=== PATIENT | male | born 2000 | race Caucasian/White ===

== ENCOUNTER 2023-12-18 04:09 | Emergency (ER) | payer BC, SELFPAY ==
[2023-12-18 04:11] VITALS: BP 168/113; PULSE 115; RESP 18; TEMP 36.8; O2SAT 98; BMI 35.6
--- NOTE | 2023-12-18 04:31 | ED_ITS ---
Discharge Plan Disposition Patient Disposition: Home, Self-Care Referrals Follow up/Referrals: Provider,Kishore, [Primary Care Provider] - See instructions Activity Restrictions/Add. Instructions Additional Instructions/Restrictions: Recommend following up with a dentist. Continue to monitor for changes. Clinical Impressions Clinical Impression: Lesion of mouth Discharge ED Provider: Benito Gorman General Adult HPI General Chief complaint: Dental/Oral Stated complaint: spot on gum Time Seen by Provider: 12/18/23 04:23 Mode of Arrival: Ambulatory Source of Information: Patient Limitations: No Limitations Description of Symptoms (Recalled from ER Triage Doc. by RN): Patient reports that he has a lump between his lip and teeth around his gums. Patient reports this lump has been there for several months . Denies any changes to the lump, no pain, patient just states that his anxiety made him come tonight. States that he has severe anxiety and became concerned that it was cancer and wanted to have it checked. History of Present Illness HPI narrative: 23-year-old male with reported history of anxiety presents for evaluation of his mouth. He reports that he has felt a lump on his right lower jaw for the last several months. It is soft, nontender, it has not changed in size. He denies any history of oral or smoking tobacco use. He reports that it is not significantly different than normal, but his anxiety made him come in. He is concerned he could have cancer. Related Data Allergies Allergy/AdvReac Type Severity Reaction Status Date / Time promethazine [From Phenergan] AdvReac Unknown Nausea Verified 12/18/23 04:28 [facility] Disclaimer: The information contained in this section may have been updated after the patient was seen, as this information can be updated by other users. Medical History (Updated 12/18/23 @ 04:31 by Benito Gorman MD) Anxiety Surgical History (Updated 12/18/23 @ 04:29 by Jennie Colon RN) History of tonsillectomy Social History Smoking Status: Never smoker alcohol intake: never current occupational status: employed Travel in the last 8 weeks: None ROS Obtained: Yes All systems reviewed & no additional complaints except as documented Physical Exam General General appearance: alert and in no apparent distress Head Head exam: atraumatic and normocephalic Eye Eye exam: Present normal appearance, PERRL and EOMI ENT ENT exam: Present normal external ear exam and other (Normal oral mucous membranes. There is a small, nontender, rounded, soft, mobile density beneath the gumline of the right mandibular incisors.) Neck Neck exam: Present normal inspection and full ROM Chest Chest inspection: Present normal inspection and symmetric chest wall rise; Absent tenderness Respiratory Respiratory exam: Present normal lung sounds bilaterally; Absent respiratory distress Cardiovascular Cardiovascular exam: Present regular rate and normal rhythm Abdominal Exam Abdominal exam: Present soft; Absent distention, tenderness or guarding Extremities Exam Extremities exam: Present normal inspection; Absent edema or joint swelling Back Exam Back exam: Present normal inspection; Absent tenderness Neurological Exam Neurological exam: Present alert and oriented X3; Absent motor sensory deficit Psychiatric Psychiatric exam: Present normal affect and normal mood Skin Skin exam: Present warm, dry and normal color Lymphatic Lymphatic Findings: no adenopathy Medical Decision Making Medical Records Medical records reviewed: Yes I reviewed the patient's medical records. Jayant Inquiry Pt receiving controlled substance: No Jayant was queried for this patient: No Vital Signs: 12/18/23 04:11 12/18/23 04:33 Temperature 98.2 F 98.2 F Temperature Source Oral Oral Pulse Rate 115 H Pulse Rate [Left Radial] 115 H Respiratory Rate 18 16 Blood Pressure 168/113 H Blood Pressure [Right Arm] 168/113 H Blood Pressure Mean [Right Arm] 131 Blood Pressure Source Automatic Cuff Blood Pressure Source [Right Arm] Automatic Cuff Blood Pressure Position Sitting Blood Pressure Position [Right Arm] Sitting 02 Sat by Pulse Oximetry 98 Oxygen Delivery Method Room Air Room Air Lab Data Lab results reviewed: Yes I reviewed the patient's lab results. Medical Decision Narrative: 23-year-old male with history of severe anxiety presents for evaluation of chronic oral lesion.. History was obtained interactive discussion with patient, family. On arrival, patient is [afebrile, hemodynamically stable, satting appropriately, alert, oriented x4, GCS 15], moving all extremities spontaneously. Full physical exam performed and significant for a small, nontender, rounded, soft, mobile density beneath the gumline of the right mandibular incisors. Normal oral mucosa. Differential includes but is not limited to cyst, lymph node, abscess, malignancy. Given patient history, exam and workup, patient's presentation most likely represents a cyst of some kind. No significant concern for malignancy at this time given patient has no risk factors, no mucous membrane changes, the lesion is soft, rounded, stable in size etc. etc. I recommended patient follow-up with his dentist for further assessment. Patient was discharged in stable condition with return precautions.. Procedures Risk/Benefits of Procedure(s) Were Explained: Yes Critical Care Critical Care Time Critical Care Time: No
[2023-12-18 04:33] VITALS: BP 168/113; PULSE 115; RESP 16; TEMP 36.8; O2SAT 98
== END 2023-12-18 04:35 | disposition home or self-care (01) ==
PROVIDERS: Emergency Provider Emergency Medicine
DX: K13.70 Unspecified lesions of oral mucosa (principal); F41.1 Generalized anxiety disorder
CPT/HCPCS: 99282

== ENCOUNTER 2025-03-11 21:44 | Emergency (ER) | payer BC, SELFPAY ==
--- OUTSIDE RECORDS SUMMARY | 2025-03-05 14:00 | XMS_ITS | Encounter Summary ---
Author Organization Healthcare Address [facility] [place] [address] Care Team Providers Care Signals Intelligence Analyst Name Role Phone Julita Shah QUILL CLEANING MACHINE OPERATOR Primary Care Provider [phone] Reason for Visit * Reason Comments Establish Care Anxiety Encounter Details Date Type Department Care Team (Late st Contact Info) Description 03/05/2025 2:00 PM EDT Office Visit [facility] [address] [place] [address] Julita Shah, QUILL CLEANING MACHINE OPERATOR [address] [place] [address] Encounter to establish care (Primary Dx); Routine general medical examination at a health care facility; BMI 40.0-44.9, adult (CMS/HCC); Anxiety; Obsessive-compulsive disorder, unspecified type Social History Tobacco Use Types Packs/Day Years Used Date Smoking Tobacco: Never Passive Smoke Exposure: Past Smokeless Tobacco: Never Tobacco Cessation:Counseling Given: Not Answered PHQ-2 Answer Date Recorded Patient Health Questionnaire-2 Score 0 03/05/2025 PHQ-9 Answer Date Recorded Patient Health Questionnaire-9 Score 4 03/05/2025 Humiliation, Afraid, Rape, and Kick questionnair e Answer Date Recorded Within the last year, have y ou been afraid of your partner or ex-partner? No 03/05/2025 Within the last year, have y ou been humiliated or emotionally abused in other ways by your partner or ex-partner? No Within the last year, have y ou been kicked, hit, slapped, or otherwise physically hurt by your partner or ex-partner? No 03/05/2025 Within the last year, have y ou been raped or forced to have any kind of sexual activity by your partner or ex-partner? No 03/05/2025 Hunger Vital Sign Answer Date Recorded Within the past 12 months, y ou worried that your food would run out before you got the money to buy more. Never true 03/05/20 25 Within the past 12 months, t he food you bought just didn't last and you didn't have money to get more. Never true 03/05/2025 PRAPARE - Transportation Answer Date Re corded In the past 12 months, has l ack of transportation kept you from medical appointments or from getting medications? No 02/13 In the past 12 months, has l ack of transportation kept you from meetings, work, or from getting things needed for daily living? No 03/05/2025 Housing Stability Vital Sign Answer Marco A e Recorded In the last 12 months, was t here a time when you were not able to pay the mortgage or rent on time? No 03/05/2025 In the past 12 months, how m any times have you moved where you were living? 0 03/05/2025 At any time in the past 12 m [facility], were you homeless or living in a detention (including now)? No 03/05/2025 Utilities Answer Date Recorded In the past 12 months has th e electric, gas, oil, or water company threatened to shut off services in your home? No 03/05/2025 Sex and Gender Information Value Date Recorded Sex Assigned at Not on file Legal Sex Male 7:05 PM EDT Gender Identity Not on file Sexual Orientation Not on file documented as of this encounter Last Filed Vital Signs Vital Sign Reading Time Taken Comments Blood Pressure 136/88 03/05/2025 1:58 PM EDT Pulse 98 03/05/2025 1:58 PM EDT Temperature - - Respiratory Rate 18 03/05/2025 1:58 PM EDT Oxygen Saturation 98% 03/05/2025 1:58 PM EDT Inhaled Oxygen Concentration - - Weight 139 kg (306 lb 7 oz) 03/05/2025 1:58 PM E DT Height 180.3 cm (5' 11 ) 03/05/2025 1:58 PM EDT Body Mass Index 42.74 03/05/2025 1:58 PM EDT documented in this encounter Functional Status * Over the past 2 weeks, how often have you been bothered by any of the following problems? Question Answer Date of Assessment Author Little interest or pleasure in doing things Not at all 03/05/2025 2:03 PM Analilia Lozano Feeling down, depressed, or hopeless Not at all 03/05/2025 2:03 PM Analilia Lozano Patient Health Questionnaire -2 Score 0 03/05/2025 2:03 PM Analilia Lozano * Question Answer Date of Assessment Author Trouble falling or staying asleep, or sleeping too much Not at all 03/05/2025 2:03 PM Analilia Lozano Feeling tired or having little energy Not at all 03/05/2025 2:03 PM Analilia Lozano Poor appetite or overeating More than half the days 03/05/2025 2:03 PM Analilia Lozano Feeling bad about yourself - or that you are a failure or have let yourself or your family down Several days 03/05/2025 2:03 PM Analilia Lozano Trouble concentrating on things, such as reading the newspaper or watching television Several days 03/05/2025 2:03 PM Analilia Lozano Moving or speaking so slowly that other people could have noticed? Or the opposite - being so fidgety or restless that you have been moving around a lot more than usual. Not at all 03/05/2025 2:03 PM Analilia Lozano Thoughts that you would be better off or hurting yourself in some way Not at all 03/05/2025 2:03 PM Analilia Lozano Patient Health Questionnaire-9 Score 4 03/05/2025 2:03 PM Analilia Lozano * Calculated C-SSRS Risk Score (Lifetime/Recent) Answer Date of Assessment Author No Risk Indicated 03/05/2025 2:00 PM Analilia Lozano * If you checked off any problems on this questionnaire so far, Question Answer Date of Assessment Author How difficult have these problems made it for you to do your work, take care of things at home, or get along with other people? Somewhat difficult 03/05/2025 2:03 PM EDT Analilia Lugo * How difficult have these problems made it for you to do your work, take care of things at home, or get along with other people? Answer Date of Assessment Author Somewhat difficult 03/05/2025 2:03 PM EDT Analilia Jon * Question Answer Date of Assessment Author 1. Wish to be (Past 1 Month) No 025 2:00 PM EDT Analilia Lugo 2. Non-Specific Active Suici benson Thoughts (Past 1 Month) No 03/05/2025 2:00 PM EDT Des Lugo 6. Suicidal Behavior (Lifetime) No 2:00 PM EDT Analilia Lugo documented as of this encounter Miscellaneous Notes * Progress Notes - Julita Shah, NINO - 03/05/2025 2:00 PM EDT Arik Thompson Chief Complaint Patient presents with [facility] Care Anxiety 24 yo CM presents today to establish care. Previously followed with a provider at [facility], but hasn't been seen there in over 1 year. 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 He also c/o anxiety. Says he feels like he constantly worries about things. Will read anabaptist documents to help reassure him, but worry comes right back. Feels easily overwhelmed. He saw a counselor in the past, mentioned OCD. Patient says he will have to press a light switch 7 times when turningit off. Also feels like he angers easily. Denies any SI/HI. ACTIVE ISSUES: Patient Active Problem List Diagnosis Date Noted Obsessive-compulsive disorder, unspecified 03/06/2024 Past Medical History[1] Surgical History[2] Family History[3] Social History Socioeconomic History Marital status: Spouse name: Not on file Number of children: Not on file Years of education: Not on file Highest education level: Not on file Occupational History Not on file Tobacco Use Smoking status: Never Passive exposure: Past Smokeless tobacco: Never Vaping Use Vaping status: Never Used Substance and Sexual Activity Alcohol use: Not on file Drug use: Not on file Sexual activity: Not on file Other Topics Concern Not on file Social History Narrative Not on file Social Drivers of Health Financial Resource Strain: Not on file Food Insecurity: No Food Insecurity (03/05/2025) Hunger Vital Sign Worried About Running Out of Food in the Last Year: Never true Ran Out of Food in the Last Year: Never true Transportation Needs: No Transportation Needs (03/05/2025) PRAPARE - Transportation Lack of Transportation (Medical): No Lack of Transportation (Non-Medical): No Physical Activity: Not on file Stress: Not on file (05/17/2024) Social Connections: Unknown (04/26/2023) Received from [facility] Family and Community Support Help with Day-to-Day Activities: Not on file Lonely or Isolated: Not on file Intimate Partner Violence: Not At Risk (03/05/2025) Humiliation, Afraid, Rape, and Kick questionnaire Fear of Current or Ex-Partner: No Emotionally Abused: No Physically Abused: No Sexually Abused: No Housing Stability: Low Risk (03/05/2025) Housing Stability Vital Sign Unable to Pay for Housing in the Last Year: No Number of Times Moved in the Last Year: 0 Homeless in the Last Year: No Medications Ordered Prior to Encounter[4] Allergies[5] Pap smear: N/A Mammogram: N/A Colonoscopy: N/A, due at age 47 Health Maintenance Due Topic Date Due [facility]-HIV Screening Never done [facility]-Depression Screening Never done [facility]-Varicella Vaccines (2 of 2 - 2-dose childhood series) 08/03/2013 [facility]- SDOH Screenings Never done [facility]-DTaP,Tdap,and Td Vaccines (7 - Td or Tdap) 05/11/2023 [facility]-IFBVC-44 Vaccine (3 - season) 2024 [facility]-Influenza Vaccine (1) 03/15/2025 All medications have been reviewed today. The following portions of the patient's chart were reviewed in this encounter and updated as appropriate: Past medical history, Surgical history, Family history, Social history, and Allergies. Over the last 2 weeks, how often have you been bothered by any of the following problems? Little interest or pleasure in doing things: Not at all Feeling down, depressed, or hopeless: Not at all Trouble falling or staying asleep, or sleeping too much: Not at all Feeling tired or having little energy: Not at all Poor appetite or overeating: More than half the days Feeling bad about yourself - or that you are a failure or have let yourself or your family down: Several days Trouble concentrating on things, such as reading the newspaper or watching television: Several days Moving or speaking so slowly that other people could have noticed? Or the opposite - being so fidgety or restless that you have been moving around a lot more than usual.: Not at all Thoughts that you would be better off or hurting yourself in some way: Not at all Patient Health Questionnaire-9 Score: 4 Review of Systems A 14 point ROS reviewed and is otherwise negative except as per HPI. Objective Vitals: 03/05/25 1358 BP: 136/88 Pulse: 98 Resp: 18 SpO2: 98% Physical Exam Vitals and nursing note reviewed. Constitutional: General: He is not in acute distress. Appearance: He is obese. HENT: Head: Normocephalic. Right Ear: Tympanic membrane, ear canal and external ear normal. Left Ear: Tympanic membrane, ear canal and external ear normal. Nose: Nose normal. Mouth/Throat: Mouth: Mucous membranes are moist. Pharynx: Oropharynx is clear. Eyes: Conjunctiva/sclera: Conjunctivae normal. Pupils: Pupils are equal, round, and reactive to light. Cardiovascular: Rate and Rhythm: Normal rate and regular rhythm. Heart sounds: Normal heart sounds. Pulmonary: Effort: Pulmonary effort is normal. Breath sounds: Normal breath sounds. Abdominal: Palpations: Abdomen is soft. There is no mass. Tenderness: There is no abdominal tenderness. Musculoskeletal: Cervical back: Neck supple. No tenderness. Right lower leg: No edema. Left lower leg: No edema. Lymphadenopathy: Cervical: No cervical adenopathy. Skin: General: Skin is warm and dry. Neurological: Mental Status: He is alert and oriented to person, place, and time. Psychiatric: Mood and Affect: Mood normal. Behavior: Behavior normal. Assessment/Plan 1. Encounter to establish care (Primary) New patient/screening labs ordered. - CBC W/O Differential - Hemoglobin A1c - Comprehensive Metabolic Panel, Plasma - Lipid Profile, Plasma - Thyroid Stimulating Hormone, Plasma 2. Routine general medical examination at a health care facility Routine health maintenance discussed. Screening labs ordered. Patient declined Tdap today. Lifestyle Counseling: Healthy diet limiting red meat and processed foods, Visit dentist 2 or more times per year, Visit optometry or ophthalmology according to age/conditions, If you drink alcohol, use in moderation. Less than 7 drinks per week for women, less than 14 drinks per week for men. , Weight loss advised, options discussed, caloric needs and healthy food choices, Intermittent fasting, Vaccine counseling for age, Age appropriate screenings, Mental health, stress management, Age appropriate safety counseling, Sexual health and safety, Sleep hygiene discussed, and Sunscreen use/monitor for paulino ing skin lesions. - CBC W/O Differential - Hemoglobin A1c - Comprehensive Metabolic Panel, Plasma - Lipid Profile, Plasma - Thyroid Stimulating Hormone, Plasma 3. BMI 40.0-44.9, adult ([facility]) Screening labs ordered. The patient received dietary education because they have an above normal BMI. and The patient received exercise education because they have an above normal BMI. - CBC W/O Differential - Hemoglobin A1c - Comprehensive Metabolic Panel, Plasma - Lipid Profile, Plasma - Thyroid Stimulating Hormone, Plasma - Vitamin D 25 Hydroxy 4. Anxiety 5. Obsessive-compulsive disorder, unspecified type Chronic, not currently well-controlled. Start Lexapro as directed. Risks vs benefits and potential adverse effects of the medication discussed. Healthy coping mechanisms advised. Follow-up in 4-6 weeks if not improving, sooner if any issues. - escitalopram (Lexapro) 10 MG tablet; Take 1 tablet by mouth daily. Dispense: 30 tablet; Refill: 11 Julita Shah APRN [1] No past medical history on file. [2] No past surgical history on file. [3] No family history on file. [4] No current outpatient medications on file prior to visit. No current facility-administered medications on file prior to visit. [5] Allergies Allergen Reactions Promethazine Nausea And Vomiting documented in this encounter Plan of Treatment Not on file documented as of this encounter Procedures Procedure Name Priority Date/Time Associated Diagnosis Comments VITAMIN D 25 HYDROXY Routine 03/05/2025 2:34 PM EDT BMI 40.0-44.9, adult (CMS/HCC) CBC W/O DIFFERENTIAL Routine 03/05/2025 2:34 PM EDT Encounter to establish care Routine general medical examination at a health care facility BMI 40.0-44.9, adult (CMS/HCC) TSH Routine 03/05/2025 2:34 PM EDT Encounter to establish care Routine general medical examination at a health care facility BMI 40.0-44.9, adult (CMS/HCC) HEMOGLOBIN A1C Routine 03/05/2025 2:34 PM EDT Encounter to establish care Routine general medical examination at a health care facility BMI 40.0-44.9, adult (CMS/HCC) LIPID PROFILE, PLASMA Routine 03/05/2025 2:34 PM EDT Encounter to establish care Routine general medical examination at a health care facility BMI 40.0-44.9, adult (CMS/HCC) COMPREHENSIVE METABOLIC PANEL, PLASMA Routine 03/05/2025 2:34 PM EDT Encounter to establish care Routine general medical examination at a health care facility BMI 40.0-44.9, adult (CMS/HCC) documented in this encounter Results * (ABNORMAL) Vitamin D 25 Hydroxy (03/05/2025 2:34 PM EDT) [facility] Vitamin D 25 Hydroxy 13.7(L) 20.0 - 80.0 ng/mL 03/05/2025 9:10 PM EDT [facility] Blood Venous blood specimen / Unknown Venipuncture / Unknown 03/05/2025 2:34 PM EDT 03/05/2025 2:34 PM EDT Narrative [facility] - 03/05/2025 9:10 PM EDT Testing performed on [employer], standardized against NIST SRM [id number]. When testing samples from patients whose predominant form of vitamin D is vitamin D2, such as patients receiving vitamin D2 supplementation, results that are subtherapeutic should be confirmed with another method, such as LC-MS/MS, before being used for patient management. Vitamin D, 25-Hydroxy reference range, age 18 years and up: Deficiency: <12 ng/mL Insufficiency: 12 to 19 ng/mL Sufficiency: 20 to 80 ng/mL Possible toxicity: >100 ng/mL Julitahumera Shah APRN LAB BLOOD ORDERABLES Final Resu lt Performing Organization Address City/[facility]/ZIP Co de Phone Number [facility] [address] [place] [address] * Thyroid Stimulating Hormone, Plasma (03/05/2025 2:34 PM EDT) Thyroid Stimulating Hormone, Plasma 2.46 0.40 - 4.20 uIU/mL 03/05/2025 7:13 PM EDT [facility] Blood Venous blood specimen / Unknown Venipuncture / Unknown 03/05/2025 2:34 PM EDT 03/05/2025 2:34 PM EDT Julita Floreso QUILL CLEANING MACHINE OPERATOR LAB BLOOD ORDERABLES Final Resu lt Performing Organization Address [facility] Co de Phone Number [facility] [address] [place] [address] * (ABNORMAL) Lipid Profile, Plasma (03/05/2025 2:34 PM EDT) Cholesterol, Plasma 181 <200 mg/dL 03/05/2025 7:13 PM EDT [facility] Comment: Cholesterol Reference Range (age >17 years): Desirable <200 mg/dL Borderline 200 to 239 mg/dL Undesirable >239 mg/dL HDL 31(L) >=40 mg/dL 03/05/2025 7:13 PM EDT [facility] Comment: HDL Cholesterol Reference Ranges (age >17 years): Female, acceptable > or = 50 mg/dL Male, acceptable > or = 40 mg/dL Triglycerides, Plasma 181(H) <150 mg/dL 03/05/2025 7:13 PM EDT [facility] Comment: Triglyceride Reference Range (age >17 years): Desirable: <150 mg/dL Borderline high: 150 to 199 mg/dL High: 200 to 499 mg/dL Very high: >499 mg/dL Increased risk of pancreatitis: >1000 mg/dL Cholesterol/HDL Ratio 6 03/05/2025 7:13 PM EDT [facility] LDL, Calculated 118(H) <100 mg/dL 7:13 PM EDT [facility] Comment: LDL Cholesterol Reference Range (age >17 years): Optimal: <100 mg/dL Near or above optimal: 100 - 129 mg/dL Borderline high: 130 - 159 mg/dL High: 160 - 189 mg/dL Very high: >189 mg/dL LDL Cholesterol Reference Range (age <18 years): Desirable: <110 mg/dL Borderline: 110 - 129 mg/dL Undesirable: >130 mg/dL LDL Cholesterol is calculated using the Rosas/NIH equation. Fasting greater than or equal to 12 hours? No 03/05/2025 7:13 PM EDT [facility] Comment:1/[address] [place] Blood Venous blood specimen / Unknown Venipuncture / Unknown 03/05/2025 2:34 PM EDT 03/05/2025 2:34 PM EDT us Julita Shah APRN LAB BLOOD ORDERABLES Final Resu lt [facility] [address] [place] [address] * (ABNORMAL) Comprehensive Metabolic Panel, Plasma (03/05/2025 2:34 PM EDT) Glucose, Plasma 93 74 - 99 mg/dL 03/05/2025 7:13 PM EDT [facility] BUN, Plasma 8 7 - 21 mg/dL 03/05/2025 7:13 PM EDT [facility] Creatinine, Plasma 0.76 0.70 - 1.20 mg/dL 03/05/2025 7:13 PM EDT [facility] BUN/Creatinine Ratio 11 03/05/2025 7:13 PM EDT [facility] Sodium, Plasma 142 136 - 145 mmol/L 03/05/2025 7:13 PM EDT [facility] Potassium, Plasma 4.1 3.6 - 4.9 mmol/L 03/05/2025 7:13 PM EDT [facility] Chloride, Plasma 105 97 - 107 mmol/L 03/05/2025 7:13 PM EDT [facility] CO2, Plasma 26 22 - 29 mmol/L 03/05/2025 7:13 PM EDT [facility] Anion Gap 11 6 - 16 mmol/L 03/05/2025 7:13 PM EDT [facility] Total Calcium, Plasma 9.5 8.9 - 10.2 mg/dL 03/05/2025 7:13 PM EDT [facility] Total Protein 7.3 6.3 - 7.9 g/dL 03/05/2025 7:13 PM EDT [facility] Albumin, Plasma 4.3 3.5 - 5.2 g/dL 03/05/2025 7:13 PM EDT [facility] AST, Plasma 36 10 - 50 U/L 03/05/2025 7:13 PM EDT [facility] ALT, Plasma 77(H) 10 - 50 U/L 03/05/2025 7:13 PM EDT [facility] Alkaline Phosphatase, Plasma 110 40 - 115 U/L 03/05/2025 7:13 PM EDT [facility] Total Bilirubin, Plasma 0.7 0.2 - 1.1 mg/dL 03/05/2025 7:13 PM EDT [facility] eGFRcr 130.3 mL/min/1.7 3m*2 03/05/2025 7:13 PM EDT [facility] Comment:Reported eGFRcr in m L/min/1.73m2 is based the CKD-EPI 2020 equation that does not use a race coefficient. Blood Venous blood specimen / Unknown Venipuncture / Unknown 03/05/2025 2:34 PM EDT 03/05/2025 2:34 PM EDT us Julita Shah APRN LAB BLOOD ORDERABLES Final Resu lt [facility] [address] [place] [address] * Hemoglobin A1c (03/05/2025 2:34 PM EDT) Hemoglobin A1c 5.6 <5.7 % 03/05/2025 8:41 PM EDT [facility] Blood Venous blood specimen / Unknown Venipuncture / Unknown 03/05/2025 2:34 PM EDT 03/05/2025 2:34 PM EDT Narrative [facility] - 03/05/2025 8:41 PM EDT HA1C Interpretive Data: Diagnosis of Diabetes: Diabetic > or = 6.5% Pre-diabetic 5.7 to 6.4% Non-diabetic < or = 5.6% Glycemic Targets for Type I and Type II Diabetics: Non- Adults <7.0% Adults <6.0% Children and Adolescents <7.5% Source: [place] [employer]. Standards of medical care in diabetes,2017. Diabetes Care.2017:40 (suppl 1):S1-S135. us Julita Shah APRN LAB BLOOD ORDERABLES Final Resu lt [facility] [address] [place] [address] * CBC W/O Differential (03/05/2025 2:34 PM EDT) Pathologist [facility] WBC Count 7.83 3.70 - 10.30 10*3/uL LAB HEMATOLOGY METHOD 03/05/2025 6:53 PM EDT [facility] RBC Count 6.04 4.60 - 6.10 10*6/uL LAB HEMATOLOGY METHOD 03/05/2025 6:53 PM EDT [facility] HGB 17.1 13.7 - 17.5 g/dL LAB HEMATOLOGY METHOD 03/05/2025 6:53 PM EDT [facility] HCT 51.0 40.0 - 51.0 % LAB HEMATOLOGY METHOD 03/05/2025 6:53 PM EDT [facility] Platelet Count 260 155 - 369 10*3/uL LAB HEMATOLOGY METHOD 03/05/2025 6:53 PM EDT [facility] MCV 84 79 - 98 fL LAB HEMATOLOGY METHOD 03/05/2025 6:53 PM EDT [facility] MCH 28.3 26.0 - 32.0 pg LAB HEMATOLOGY METHOD 03/05/2025 6:53 PM EDT [facility] MCHC 33.5 30.7 - 35.5 g/dL LAB HEMATOLOGY METHOD 03/05/2025 6:53 PM EDT [facility] RDW 12.9 11.5 - 14.5 % LAB HEMATOLOGY METHOD 03/05/2025 6:53 PM EDT [facility] MPV 10.2 8.8 - 12.5 fL LAB HEMATOLOGY METHOD 03/05/2025 6:53 PM EDT [facility] nRBC 0.0 <=0.0 per 100 WBCs LAB HEMATOLOGY METHOD 03/05/2025 6:53 PM EDT [facility] Blood Venous blood specimen / Unknown Venipuncture / Unknown 03/05/2025 2:34 PM EDT 03/05/2025 2:34 PM EDT us Julita Shah APRN LAB BLOOD ORDERABLES Final Resu lt [facility] [address] [place] [address] documented in this encounter Visit Diagnoses Diagnosis Encounter to establish care- Primary Routine general medical examination at a health care facility BMI 40.0-44.9, adult (CMS/HCC) Anxiety Anxiety state, unspecified Obsessive-compulsive disorder, unspecified type documented in this encounter Additional Health Concerns Assessment Noted Time PHQ-9 Depression Total Score: 4 03/05/20 2:03 PM EDT A Body Mass Index follow-up plan has been documented for the patient 03/05/2025 2:35 PM EDT documented as of this encounter Care Teams Signals Intelligence Analyst Relationship Specialty Start Date End Date Julita Shah APRN [address] [place] [phone] PCP - General Family Medicine 03/05/25 documented as of this encounter
[2025-03-11 21:51] VITALS: BP 169/105; PULSE 118; RESP 16; TEMP 36.6; O2SAT 98; BMI 42.3
--- OUTSIDE RECORDS SUMMARY | 2025-03-11 22:03 | XMS_ITS | Encounter Summary ---
Author Organization [facility] Address [address] [place] [address] Phone [email or web address] Care Team Providers Care Treasury Assistant Name Role Phone Unavailable Primary Care Provider Unavailabl e Encounter Details Date Type Department Care Team (Late st Contact Info) Description 03/02/2025 Telephone [facility] [place] [address] [place] [phone] Ronak Carvajal Social History Tobacco Use Types Packs/Day Years Used Date Smoking Tobacco: Never Smokeless Tobacco: Never Intimate Partner Violence Answer Date R ecorded Insults You Not on file 01/04/2021 Threatens You Not on file 01/04/2021 Screams at You Not on file 01/04/2021 Physically Hurt Not on file 01/04/2021 Intimate Partner Violence Score Not on file 01/04/2021 Depression Answer Date Recorded PHQ Total Score 0 06/09/2024 Stress Answer Date Recorded Stress in your Life Not on file 05/17/2024 Dealing with Stress 3 05/17/2024 Sex and Gender Information Value Date Recorded Sex Assigned at Not on file Legal Sex Male 8:34 PM CDT Gender Identity Not on file Sexual Orientation Not on file documented as of this encounter Miscellaneous Notes * Telephone Encounter - Ronak Carvajal - 03/02/2025 10:04 AM EDT Nurse transport company manager note for RAFIQ TM. Employee: Arik Thompson Workday ID#: [id number] Email: [email or web address] Current/most recent cost center: [id number] Shift: 2nd warehouse shift supervisor: Deepak Tobias Current status/Pay source: WMLOA Last Day Worked: 10/30/24 Case/Incident #: [id number] Work Comp Reel Film Inspector: Pat Kirk) [phone] Claim#: [id number] Body part: Right shoulder/neck Dx: . Right shoulder pain, unspecified chronicity M25.511 719.41 Date of Injury: 05/11/24 Date reported: 05/11/24 Current temporary restrictions: Yes, see [facility] discharge instructions Comorbidities: Obesity Current plan of care: Restrictions Physical therapy off site at [address] Diagnostics: MRI C-healthcare management consultant referral to Dr. Alvarez TM sent home until released by specialist Epidural injection 01/14/[address] in [place] [facility] Provider: OTTONIEL Olsen [phone] NEXT CLINIC VISIT: after being released by specialist Last Specialist Visit: 02/23/25 NEXT SPECIALIST VISIT: pending Notes: WMLOA. LDW 10/30/24. Neck/right shoulder. [facility] d/t elevated RWD. Treating with Dr. Alvarez. MRI of c-spine. Cervical stenosis per patient. Call placed to security team lead to discuss updates from 02/23/25 office visit. No answer, voice mailbox full. Email sent requesting a return call with this [facility] contact information. Call and email received from and informed this [facility] he is currently waiting to get scheduled withDr. Alvarez's group for a nerve test before narrowing their decision on what type of surgery is needed. No call from their office with date at this moment. Planned RTW Date: TBD Ink Maker Plan/Goals: Call after next specialist visit and as needed Notes requested from specialist's office Continue following plan of care per specialist Conclusion: -TM to call back with updates and changes or as needed. -TM has no further concerns at this time. Ink Maker Signature: Ronak Carvajal documented in this encounter Plan of Treatment Not on file documented as of this encounter Visit Diagnoses Not on filedocumented in this encounter
--- OUTSIDE RECORDS SUMMARY | 2025-03-11 22:03 | XMS_ITS | Encounter Summary ---
Author Organization Healthcare Address [address] [place] [address] Care Team Providers Care Mica Miner Name Role Phone Julita Shah APRN Primary Care Provider [phone] Encounter Details Date Type Department Care Team (Late st Contact Info) Description 03/08/2025 Results Follow-Up [facility] [address] [place] [address] Julita Shah APRN [address] [place] [address] Social History Tobacco Use Types Packs/Day Years Used Date Smoking Tobacco: Never Passive Smoke Exposure: Past Smokeless Tobacco: Never PHQ-2 Answer Date Recorded Patient Health Questionnaire-2 [...] any time in the past 12 m [facility], were you homeless or living in a penitentiary (including now)? No 03/05/2025 Utilities Answer Date [...] encounter Miscellaneous Notes * Telephone Encounter - Lindy Reaves - 03/08/2025 3:40 PM EDT Patient Phone Message Reason for Call: Spouse asking for a call back to discuss lab results. Pls advise. Thank you! Best contact number and optimal time of day to reach caller: [phone] Note: Please do not reply to this message. Follow-up communication and further actions as a result of this message need to be communicated with the patient directly, if the patient is not active onMyChart. If the patient is active on MyChart, they will receive notification of the communication/outcome via [employer]. documented in this encounter Plan of Treatment Not on file documented as of this encounter Visit Diagnoses Not on filedocumented in this encounter Additional Health Concerns Assessment Noted Time PHQ-9 Depression Total Score: 4 03/05/20 2:03 PM EDT A Body Mass Index follow-up plan has been documented for the patient 03/05/2025 2:35 PM EDT documented as of this encounter Care Teams Mica Miner Relationship Specialty Start Date End Date Julita Shah APRN [address] [place] [address] PCP - General Family Medicine 03/05/25 documented as of this encounter
--- OUTSIDE RECORDS SUMMARY | 2025-03-11 22:03 | XMS_ITS | Encounter Summary ---
Author Organization [facility] Address [address] [place] [address] Phone [email or web address] Care Team Providers Care Sales Representative Business Courses Name Role Phone Unavailable Primary Care Provider Unavailabl e Encounter Details Date Type Department Care Team (Late st Contact Info) Description 02/16/2025 Telephone [facility] [place] [address] [place] [phone] Ronak Carvajal Social History Tobacco Use [...] * Telephone Encounter - Ronak Carvajal - 02/16/2025 3:01 PM EDT Nurse medical center manager note for RAFIQ TM. 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 Right shoulder pain, unspecified chronicity M25.511 719.41 Date of Injury: 05/11/24 Date reported: 05/11/24 Current temporary restrictions: Yes, see [facility] discharge instructions Comorbidities: Obesity Current plan of care: Restrictions Physical therapy off site at [address] Diagnostics: MRI C-reconditioning associate referral to Dr. Alvarez TM sent home until released by specialist Epidural injection 01/14/25 PT at [address] [place] [address] in [place] [facility] Provider: OTTONIEL Olsen [phone] NEXT CLINIC VISIT: after being released by specialist Last Specialist Visit: 02/16/25 NEXT SPECIALIST VISIT: 02/23/25 Notes: WMLOA. LDW 10/30/24. Neck/right shoulder. Sent home per [facility] d/t elevated RWD. Treating with Dr. Alvarez. MRI of c-spine. Cervical stenosis per patient. Call received from patient states had office visit with Dr. Alvarez 02/16/25 and has now been referredto Dr. Baker, chargemaster specialist in [place], [place]. Planned RTW Date: TBD Bag Machine Operator Plan/Goals: Call after next specialist visit and as needed Notes requested from specialist's office Continue following plan of care per specialist Conclusion: -TM to call back with updates and changes or as needed. -TM verbalized knowledge of next steps/appointments. -TM has no further concerns at this time. Bag Machine Operator Signature: Ronak Carvajal documented in this encounter Plan of Treatment Not on file documented as of this encounter Visit Diagnoses Not on filedocumented in this encounter
--- OUTSIDE RECORDS SUMMARY | 2025-03-11 22:03 | XMS_ITS | Clinical Summary ---
Author Organization [facility] Address [address] [place] [address] Care Team Providers Care Flight Operation Coordinator Name Role Phone Ananya Marte MASTER POLICE DETECTIVE Primary Care Provider [phone] Allergies Active Allergy Reactions Criticality Noted Date Comments Promethazine Nausea And Vomiting 10/03/2022 Medications venlafaxine XR (EFFEXOR-XR) 37.5 MG 24 hr capsuleIndicatio ns:Generalized anxiety disorder Take 1 capsule by mouth once daily 30 capsule 3 Active Additional Information Patient not taking.Reported on 10/21/2023 psyllium (Metamucil Smooth Texture) 58.6 % powderIndication s:Constipation, unspecified constipation type Take by mouth 3 (Three) Times a Day. 283 g 3 4 Active Active Problems No known active problems Immunizations Immunization Administration Dates Next Due COVID-19 (MODERNA) 1st,2nd,3 rd Dose Monovalent 12/03/2020 COVID-19 (UNSPECIFIED) 10/25/2020 DTaP, Unspecified 04/02/2006, 3,2002,08/05,2002 FluMist 2-49yrs (Nasal) 04/23/2013,05/24/2011 HPV Quadrivalent 08/30/2016,04/16/2016, 6 Hep A, 2 Dose 08/26/2018,02/20/2018 Hep B, Adolescent or Pediatric 2002,2001,2002 HiB 07/06/2003, 3,2002,06/01 IPV 04/02/2006, 3,2002,06/01 MMR 04/02/2006,03/31/2003 Meningococcal MCV4P (Menactra) 08/26/2018,2012 Meningococcal, Unspecified 05/11/2013 Pneumococcal Conjugate 13-Va lent (PCV13) 07/06/2003,2002,2002,06/01 Tdap 05/11/2013 Varicella 05/11/2013,03/31/2003 Family History Medical History Relation Name Comments Anxiety disorder Father Ok Depression Father Ok Relation Name Status Comments Father Ok Social History Tobacco Use Types Packs/Day Years Used Date Smoking Tobacco: Never Smokeless Tobacco: Never Tobacco Cessation:Counseling Given: Not Answered Alcohol Use Standard Drinks/Week Comments Never 0 (1 standard drink = 0.6 oz pur e alcohol) PHQ-2 Answer Date Recorded Retired PHQ-9: Brief Depression Severity Measure Score 0 10/03/2022 Abuse Screen Answer Date Recorded Unsafe at Home or Work/School Not on file Feels Threatened by Someone? Not on file Does Anyone Keep You from Co ntacting Others or Doint Things Outside the Home? Not on file 04/26/2023 Physical Sign of Abuse Present Not on file 1 Housing Stability Answer Date Recorded Current Living Arrangements Not on file 04/14 Potentially Unsafe Housing Conditions Not on nina e 04/26/2023 Family and Community Support Answer Marco A e Recorded Help with Day-to-Day Activities Not on file 04/26/2023 Lonely or Isolated Not on file 04/26/2023 Employment Answer Date Recorded Do you want help finding or keeping work or a polo b? Not on file 04/26/2023 Disabilities Answer Date Recorded Concentrating, Remembering, or Making Decisions Difficulty Not on file 04/26/2023 Doing Errands Independently Difficulty Not on fi le 04/26/2023 Education Answer Date Recorded Help with school or training? Not on file Preferred Language Not on file 04/26/2023 PHQ-2 Answer Date Recorded Retired PHQ-9: Brief Depression Severity Measure Score 0 10/21/2023 Sex and Gender Information Value Date Recorded Sex Assigned at Not on file Legal Sex Male 12:34 PM EST Gender Identity Not on file Sexual Orientation Not on file Last Filed Vital Signs Vital Sign Reading Time Taken Comments Blood Pressure 140/80 10/21/2023 12:11 PM EDT Pulse 83 10/21/2023 12:11 PM EDT Temperature 36.9 C (98.4 F) 10/21/2023 12:11 PM EDT Respiratory Rate 14 10/21/2023 12:11 PM EDT Oxygen Saturation 98% 10/21/2023 12:11 PM EDT Inhaled Oxygen Concentration - - Weight 108 kg (237 lb) 10/21/2023 12:11 PM EDT Height 180.3 cm (5' 11 ) 10/21/2023 12:11 PM EDT Body Mass Index 33.05 10/21/2023 12:11 PM EDT Plan of Treatment Health Maintenance Due Date Last Done Comments MENINGOCOCCAL B VACCINE (1 o f 2 - Standard) 2018 TDAP/TD VACCINES (2 - Td or Tdap) 05/11/2023 013 ANNUAL PHYSICAL 10/04/2023 10/03/2022 COVID-19 Vaccine (3 - 2023-2 5 season) 2024 12/03/2020, 10/25/2020 INFLUENZA VACCINE 04/14/2025 04/23/2013, 05/24/2011 Pneumococcal Vaccine 0-49 Completed 2002, 2002, 2002, Additional history exists MENINGOCOCCAL VACCINE Completed 08/26/2018 , 05/11/2013, 05/11/2013 HEPATITIS C SCREENING Completed 10/03/2022 Procedures Procedure Name Priority Date/Time Associated Diagnosis Comments HEPATITIS C ANTIBODY Routine 10/03/2022 2:42 PM EDT Encounter for hepatitis C screening test for low risk patient from Last 3 Months or Most Recently Relevant to Health Maintenance Results * Hepatitis C Antibody (10/03/2022 2:42 PM EDT) Hep C Virus Ab Non Reactive Non Reactive [facility] Comment: HCV antibody alone does not differentiate between previously resolved infection and active infection. Equivocal and Reactive HCV antibody results should be followed up with an HCV RNA test to support the diagnosis of active HCV infection. Blood 10/03/2022 2:42 PM EDT 10/03/2022 Narrative [facility] ([facility]BULAT[facility]) - 10/04/2022 12:10 PM EDT Performed at: 01 - [facility] [address] [place], [place] [id number] Hydrator: Price Kim PhD, Phone: [phone] Patient Fasting: N Ananya Marte APRN LAB BLOOD ORDERABLES Final R esult [facility] [address] [place] [address], [facility] [address] [place] [address], from Last 3 Months or Most Recently Relevant to Health Maintenance [place] [address] [place] [address] PPO Care Teams Flight Operation Coordinator Relationship Specialty Start Date End Date Ananya Marte APRN PCP - General Family Medicine 10/03/22
--- OUTSIDE RECORDS SUMMARY | 2025-03-11 22:03 | XMS_ITS | Encounter Summary ---
Author Organization [facility] Address [address] [place] [address] Phone [email or web address] Care Team Providers Care Senior Technical Analyst Name Role Phone Unavailable Primary Care Provider Unavailabl e Reason for Visit * Reason Onset Date Comments Care Coordination 02/01/2025 Encounter Details Date Type Department Care Team (Late st Contact Info) Description 02/01/[address] [place] [address] Alyson Lowry, RN [address] [place] [address] Social History Tobacco Use Types Packs/Day Years [...] on file documented as of this encounter Progress Notes * Alyson Lowry RN - 02/01/2025 8:54 AM EDT Nurse charge manager note for RAFIQ COATES Employee: Arik Thompson Workday ID#: [id number] Email: [email or web address] Current/most recent cost center: [id number] 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 Right shoulder pain, unspecified chronicity M25.511 719.41 Date of Injury: 05/11/24 Date reported: 05/11/24 Current temporary restrictions: Yes, see [facility] discharge instructions Comorbidities: Obesity Current plan of care: Restrictions Physical therapy off site at [address] in [place] Diagnostics: MRI C-icer hand referral to Dr. Alvarez TM sent home until released by specialist Epidural injection 01/14/25 PT at [address] in [place] [facility] Provider: OTTONIEL Olsen [phone] NEXT CLINIC VISIT: after being released by specialist Last Specialist Visit: 01/25/25 NEXT SPECIALIST VISIT: 02/16/25 Notes: LOA. LDW 10/30/24. Neck/right shoulder. Sent home per [facility] d/t elevated RWD. Treating with Dr. Alvarez. MRI of c-spine. Cervical stenosis per patient. Called patient today for update. States that he followed up with Dr. Alvarez on 01/25/25. Reports that he experienced some side effects s/p cervical LEONARD that he received on 01/14/25. Admits severe headaches with any movement s/p injection for a couple of days. Symptoms have since resolved for the most part. Admits some pain but not like it was. Recommended to continue PT. Last PT visit last ,next visit tomorrow. Next scheduled F/U appt with Antonio is on 02/16/25. KAYLYNNRN Planned RTW Date: TBD Welding Technician Plan/Goals: Call after next specialist visit and as needed Notes requested from specialist's office Continue following plan of care per specialist Conclusion: -TM to call back with updates and changes or as needed. -TM verbalized knowledge of next steps/appointments. -TM has no further concerns at this time. Welding Technician Signature: Alyson Lowry RN documented in this encounter Plan of Treatment Not on file documented as of this encounter Visit Diagnoses Not on filedocumented in this encounter
--- OUTSIDE RECORDS SUMMARY | 2025-03-11 22:03 | XMS_ITS | Encounter Summary ---
Author Organization Healthcare Address [address] [place] [address] Care Team Providers Care Oral And Maxillofacial Pathologist Name Role Phone Julita Shah APRN Primary Care Provider [phone] Encounter Details Date Type Department Care Team (Latest Contact Info) Description 03/05/2025 Travel Social History Tobacco Use Types Packs/Day Years [...] any time in the past 12 m [facility], were you homeless or living in a nursing home (including now)? No 03/05/2025 Utilities Answer Date Recorded In the past 12 months has th e [employer], gas, oil, or water company threatened to shut off services in your home? No 03/05/2025 Sex and Gender Information Value Date Recorded Sex Assigned at Not on file Legal Sex Male 7:05 PM EDT Gender Identity Not on file Sexual Orientation Not on file documented as of this encounter Functional Status * Over the [...] other people? Somewhat difficult 03/05/2025 2:03 PM Analilia Lozano * How difficult have these problems made it for you to do your work, take care of things at home, or get along with other people? Answer Date of Assessment Author Somewhat difficult 03/05/2025 2:03 PM Analilia Lyons * Question Answer Date of Assessment Author 1. Wish to be (Past 1 Month) No 025 2:00 PM Analilia Lozano 2. Non-Specific Active Suici benson Thoughts (Past 1 Month) No 03/05/2025 2:00 PM Des Lozano 6. Suicidal Behavior (Lifetime) No 5 2:00 PM Analilia Lozano documented as of this encounter Plan of Treatment Not on file documented as of this encounter Visit Diagnoses Not on filedocumented in this encounter Additional Health Concerns Assessment Noted Time PHQ-9 Depression Total Score: 4 03/05/20 25 2:03 PM EDT A Body Mass Index follow-up plan has been documented for the patient 03/05/2025 2:35 PM EDT documented as of this encounter Care Teams Oral And Maxillofacial Pathologist Relationship Specialty Start Date End Date Julita Shah, SECURITY AND COMPLIANCE PROJECT MANAGER [address] [place] [address] PCP - General Family Medicine 03/05/25 documented as of this encounter
--- OUTSIDE RECORDS SUMMARY | 2025-03-11 22:03 | XMS_ITS | Clinical Summary ---
Author Organization Healthcare Address [address] [place] [address] Care Team Providers Care Optical Engineering Technician Name Role Phone Julita Shah APRN Primary Care Provider [phone] Allergies Active Allergy Reactions Criticality Noted Date Comments Promethazine Nausea And Vomiting 12/12/2021 Medications escitalopram (Lexapro) 10 MG tabletIndication s:Anxiety,Obsess ana-compulsive disorder, unspecified type Take 1 tablet by mouth daily. 30 tablet 11 03/05/2025 Active ergocalciferol (Vitamin D-2) 1.25 MG (58009 UT) capsule Take 1 capsule by mouth 1 time per week. 4 capsule 2 03/08/2025 Active Active Problems Problem Noted Date Diagnosed Date Obsessive-compulsive disorder, unspecified 03/06 Encounters Date Type Department Care Team Description 03/08/2025 Results Follow-Up [facility] [address] [place] [address] Julita Shah APRN 03/05/2025 2:00 PM EDT Office Visit [facility] [address] [place] [address] Julita Shah APRN Encounter to establish care (Primary Dx); Routine general medical examination at a health care facility; BMI 40.0-44.9, adult (CMS/HCC); Anxiety; Obsessive-compulsive disorder, unspecified type 03/05/2025 Travel from Last 3 Months Immunizations Immunization Administration Dates Next Due DTaP, Unspecified 04/02/2006, 3,2002,08/05,2002 HPV, Quadrivalent 08/30/2016,04/16/2016,01/26/20 16 Hep A, ped/adol, 2 dose 08/26/2018,02/20/2018 Hep B, Adolescent or Pediatric 2002,2001,2002 HiB, unspecified 07/06/2003, 3,2002,06/01 IPV 04/02/2006, 3,2002,06/01 Influenza, live, intranasal 04/23/2013, 1 MMR 04/02/2006,03/31/2003 Meningococcal ACWY, unspecified 05/11/2013 Meningococcal MCV4P 08/26/2018 Moderna COVID-19 Vaccine (Re d Cap) 12+ years 12/03/2020,10/25/2020 Pneumococcal Conjugate PCV 13 07/06/2003 ,2002,2002,06/01 Tdap 05/11/2013 Varicella 05/11/2013,03/31/2003 Family History Medical History Relation Name Comments Diabetes Father Hypercholesterolemia Father Breast cancer Maternal Grandmother Breast cancer Mother Diabetes Mother Thyroid disease Mother Relation Name Status Comments Father Maternal Grandmother Mother Social History Tobacco Use Types Packs/Day Years [...] any time in the past 12 m [facility], were you homeless or living in a [facility] (including now)? No 03/05/2025 Utilities Answer Date [...] Mass Index 42.74 03/05/2025 1:58 PM EDT Plan of Treatment Health Maintenance Due Date Last Done Comments [facility]-HIV Screening 2002 [facility]-Infant/Child/Adol SDOH Screenings 2002 [facility]-Varicella Vaccines (2 of 2 - 2-dose childhood series) 08/03/2013 05/11/2013, 03/31/2003 [facility]-Influenza Vaccine (#1) 2025 04/23/2013, [id number] Vaccine (3 - season) 2025 12/03/2020, 10/25/2020 Postponed from 03/15/2024 (Patient Refused) [facility]- SDOH Screenings 09/05/2025 [facility]-Adult SDOH Screenings 09/05/2025 03/05/2025 [facility]-DTaP,Tdap,and Td Vaccines (7 - Td or Tdap) 03/05/2026 05/11/2013, 04/02/2006, 07/06/2003, Additional history exists Postponed from 05/11/2023 (Patient Refused) [facility]-Depression Screening 03/05/2026 03/05/2025, 02/13 [facility]-Zoster Vaccines (1 of 2) 2052 05/11/2013, 03/31/2003 [facility]-Hepatitis B Vaccines Completed 003, 2002, 2002 [facility]-HIB Vaccines Completed 07/06/2003, , 2002, Additional history exists [facility]-Pneumococcal Vaccine: Pediatrics (0 to 5 Years) and At-Risk Patients (6 to 49 Years) Completed 07/06/2003, 2002, 2002, Additional history exists [facility]-IPV Vaccines Completed 04/02/2006, , 2002, Additional history exists HPV Vaccines Completed 08/30/2016, 09/2015, 01/26/2016 [facility]-Hepatitis A Vaccines Completed 08/26/2018, 03/2018 [facility]-Hepatitis C Screening Completed 10/03/2022 [facility]-Obesity Intervention Completed 025, 03/05/2025, 03/05/2025 [facility]-Rotavirus Vaccines Aged Out No lo nger eligible based on patient's age to complete this topic Procedures Procedure Name Priority Date/Time Associated Diagnosis Comments VITAMIN D 25 HYDROXY Routine 03/05/2025 2:34 PM EDT BMI 40.0-44.9, adult (CMS/[facility]) TSH Routine 03/05/2025 2:34 PM EDT Encounter [...] health care facility BMI 40.0-44.9, adult (CMS/HCC) CBC W/O DIFFERENTIAL Routine 03/05/2025 2:34 PM EDT Encounter to establish care Routine general medical examination at a health care facility BMI 40.0-44.9, adult (CMS/HCC) from Last 3 Months Results * (ABNORMAL) Vitamin D 25 Hydroxy (03/05/2025 2:34 PM EDT) Vitamin D 25 Hydroxy 13.7(L) 20.0 - 80.0 ng/mL 03/05/2025 9:10 PM EDT [facility] Blood Venous blood specimen / Unknown Venipuncture / Unknown 03/05/2025 2:34 PM EDT 03/05/2025 2:34 PM EDT Narrative [facility] - 03/05/2025 9:10 PM EDT Testing performed on Liiiike, standardized against NIST SRM 2972. When testing [...] to 80 ng/mL Possible toxicity: >100 ng/mL us Julita Shah APRN LAB BLOOD ORDERABLES Final Resu lt [facility] [address] [place] [address] * CBC W/O Differential (03/05/2025 2:34 PM EDT) WBC Count 7.83 3.70 - 10.30 10*3/uL LAB HEMATOLOGY METHOD 03/05/2025 6:53 PM EDT [facility] RBC Count 6.04 4.60 - 6.10 10*6/uL LAB HEMATOLOGY METHOD 03/05/2025 6:53 PM EDT [facility] HGB 17.1 13.7 - 17.5 g/dL LAB HEMATOLOGY METHOD 03/05/2025 6:53 PM EDT [facility] HCT 51.0 40.0 - 51.0 % LAB HEMATOLOGY METHOD 03/05/2025 6:53 PM EDT [facility] Platelet Count 260 155 - 369 10*3/uL LAB HEMATOLOGY METHOD 03/05/2025 6:53 PM EDT [facility] MCV 84 79 - 98 fL LAB HEMATOLOGY METHOD 03/05/2025 6:53 PM EDT [facility] MCH 28.3 26.0 - 32.0 pg LAB HEMATOLOGY METHOD 03/05/2025 6:53 PM EDT [facility] MCHC 33.5 30.7 - 35.5 g/dL LAB HEMATOLOGY METHOD 03/05/2025 6:53 PM EDT [facility] RDW 12.9 11.5 - 14.5 % LAB HEMATOLOGY METHOD 03/05/2025 6:53 PM EDT [facility] MPV 10.2 8.8 - 12.5 fL LAB HEMATOLOGY METHOD 03/05/2025 6:53 PM EDT [facility] nRBC 0.0 <=0.0 per 100 WBCs LAB HEMATOLOGY METHOD 03/05/2025 6:53 PM EDT [facility] Blood Venous blood specimen / Unknown Venipuncture / Unknown 03/05/2025 2:34 PM EDT 03/05/2025 2:34 PM EDT us Julita Shah APRN LAB BLOOD ORDERABLES Final Resu lt Performing Organization Address City/[facility]/ZIP Co de Phone Number [facility] [address] [place] [address] * Thyroid Stimulating Hormone, Plasma (03/05/2025 2:34 PM EDT) Thyroid Stimulating Hormone, Plasma 2.46 0.40 - 4.20 uIU/mL 03/05/2025 7:13 PM EDT [facility] Blood Venous blood specimen / Unknown Venipuncture / Unknown 03/05/2025 2:34 PM EDT 03/05/2025 2:34 PM EDT us Julita Shah APRN LAB BLOOD ORDERABLES Final Resu lt Performing Organization Address City/[facility]/ZIP Co de Phone Number [facility] [address] [place] [address] * Hemoglobin A1c (03/05/2025 2:34 PM EDT) Hemoglobin A1c 5.6 <5.7 % 03/05/2025 8:41 PM EDT [facility] Blood Venous blood specimen / Unknown Venipuncture / Unknown 03/05/2025 2:34 PM EDT 03/05/2025 2:34 PM EDT Narrative [facility] - 03/05/2025 8:41 PM EDT HA1C Interpretive Data: Diagnosis of Diabetes: Diabetic > or = 6.5% Pre-diabetic 5.7 to 6.4% Non-diabetic < or = 5.6% Glycemic Targets for Type I and Type II Diabetics: Non- Adults <7.0% Adults <6.0% Children and Adolescents <7.5% Source: [place] [employer]. Standards of medical care in diabetes,2017. Diabetes Care.2017:40 (suppl 1):S1-S135. us Julita Shah APRN LAB BLOOD ORDERABLES Final Resu lt [facility] [address] [place] [address] * (ABNORMAL) Lipid Profile, Plasma (03/05/2025 2:34 PM EDT) [facility] Cholesterol, Plasma 181 <200 mg/dL 03/05/2025 7:13 PM EDT [facility] Comment: Cholesterol Reference Range (age >17 years): Desirable <200 mg/dL Borderline 200 to 239 mg/dL Undesirable >239 mg/dL HDL 31(L) >=40 mg/dL 03/05/2025 7:13 PM EDT [facility] Comment: HDL Cholesterol Reference Ranges (age >17 years): Female, acceptable > or = 50 mg/dL Male, acceptable > or = 40 mg/dL Triglycerides, Plasma 181(H) <150 mg/dL 03/05/2025 7:13 PM EDT [facility] Comment: Triglyceride Reference Range (age >17 years): Desirable: <150 mg/dL Borderline high: 150 to 199 mg/dL High: 200 to 499 mg/dL Very high: >499 mg/dL Increased risk of pancreatitis: >1000 mg/dL Cholesterol/HDL Ratio 6 03/05/2025 7:13 PM EDT [facility] LDL, Calculated 118(H) <100 mg/dL 7:13 PM EDT [facility] Comment: LDL Cholesterol Reference Range [...] 12 hours? No 03/05/2025 7:13 PM EDT [facility] Comment:1/2 Mt[facility]asha Quiñones Blood Venous blood specimen / Unknown Venipuncture / Unknown 03/05/2025 2:34 PM EDT 03/05/2025 2:34 PM EDT us Julita Mary Grace Shah WATER FILTERER HELPER LAB BLOOD ORDERABLES Final Resu lt [facility] [address] [place] [address] * (ABNORMAL) Comprehensive Metabolic Panel, Plasma (03/05/2025 2:34 PM EDT) Glucose, Plasma 93 74 - 99 mg/dL 03/05/2025 7:13 PM EDT [facility] BUN, Plasma 8 7 - 21 mg/dL 03/05/2025 7:13 PM EDT [facility] Creatinine, Plasma 0.76 0.70 - 1.20 mg/dL 03/05/2025 7:13 PM EDT [facility] BUN/Creatinine Ratio 11 03/05/2025 7:13 PM EDT [facility] Sodium, Plasma 142 136 - 145 mmol/L 03/05/2025 7:13 PM EDT [facility] Potassium, Plasma 4.1 3.6 - 4.9 mmol/L 03/05/2025 7:13 PM EDT [facility] Chloride, Plasma 105 97 - 107 mmol/L 03/05/2025 7:13 PM EDT [facility] CO2, Plasma 26 22 - 29 mmol/L 03/05/2025 7:13 PM EDT [facility] Anion Gap 11 6 - 16 mmol/L 03/05/2025 7:13 PM EDT [facility] Total Calcium, Plasma 9.5 8.9 - 10.2 mg/dL 03/05/2025 7:13 PM EDT [facility] Total Protein 7.3 6.3 - 7.9 g/dL 03/05/2025 7:13 PM EDT [facility] Albumin, Plasma 4.3 3.5 - 5.2 g/dL 03/05/2025 7:13 PM EDT [facility] AST, Plasma 36 10 - 50 U/L 03/05/2025 7:13 PM EDT [facility] ALT, Plasma 77(H) 10 - 50 U/L 03/05/2025 7:13 PM EDT [facility] Alkaline Phosphatase, Plasma 110 40 - 115 U/L 03/05/2025 7:13 PM EDT [facility] Total Bilirubin, Plasma 0.7 0.2 - 1.1 mg/dL 03/05/2025 7:13 PM EDT [facility] eGFRcr 130.3 mL/min/1.7 3m*2 03/05/2025 7:13 PM EDT [facility] Comment:Reported eGFRcr in m L/min/1.73m2 is based the CKD-EPI 2020 equation that does not use a race coefficient. Blood Venous blood specimen / Unknown Venipuncture / Unknown 03/05/2025 2:34 PM EDT 03/05/2025 2:34 PM EDT us Julita Shah APRN LAB BLOOD ORDERABLES Final Resu lt [facility] [address] [place] [address] from Last 3 Months Insurance [id number] Care Teams Optical Engineering Technician Relationship Specialty Start Date End Date Julita Shah APRN [address] [place] [address] PCP - General Family Medicine 03/05/25
--- OUTSIDE RECORDS SUMMARY | 2025-03-11 22:03 | XMS_ITS | Clinical Summary ---
Author Organization [facility] Address [address] [place] [id number] Phone [email or web address] Care Team Providers Care Trading Manager Name Role Phone Unavailable Primary Care Provider Unavailabl e Allergies Active Allergy Reactions Criticality Noted Date Comments Promethazine 12/12/2021 Medications escitalopram (Lexapro) 10 MG tabletIndicatio ns:Anxious depression Take 1 tablet (10 mg total) by mouth 1 (one) time each day. 30 tablet 12/12/2021 Active diclofenac (VOLTAREN) 75 MG EC tablet Take 75 mg by mouth in the morning and 75 mg before bedtime. 10/12/2024 Active Active Problems No known active problems Encounters Date Type Department Care Team Description 03/02/2025 Telephone [facility] [address] [address] Ronak Carvajal 02/16/2025 Telephone [facility] [address] [place] [address] Ronak Carvajal 02/01/2025 Documentation [facility] [address] [place] [address] Alyson Lowry, RN 12/11/2024 Documentation [facility] [address] [place] [address] Alyson Lowry, RN from Last 3 Months Social History Tobacco Use Types Packs/Day Years Used Date Smoking Tobacco: Never Smokeless Tobacco: Never Tobacco Cessation:Counseling Given: Not Answered Intimate Partner Violence Answer Date R ecorded [...] Sign Reading Time Taken Comments Blood Pressure 139/91 10/19/2024 8:28 PM EDT Pulse 116 10/19/2024 8:28 PM EDT Temperature 37 C (98.6 F) 10/19/2024 8:28 PM EDT Respiratory Rate 18 10/19/2024 8:28 PM EDT Oxygen Saturation 97% 10/19/2024 8:28 PM EDT Inhaled Oxygen Concentration - - Weight 125 kg (274 lb 9.6 oz) 06/09/2024 10:38 P M EST Height 180.3 cm (5' 11 ) 06/09/2024 10:38 PM EST Body Mass Index 38.3 06/09/2024 10:38 PM EST Plan of Treatment Health Maintenance Due Date Last Done Comments Dental Cleaning/Exam 2002 HIV Screening 2002 Hepatitis C Screening 2002 Men B Immunization (1 of 2 - Standard) 2018 Hep B Infection Screening - Triple Screen 2020 Annual Preventive Exam 01/05/2022 01/05/2021 Tetanus Diphtheria and Pertussis Immunization (7 - Td or Tdap) 05/11/2023 05/11/2013, 04/02/2006, 07/06/2003, Additional history exists Covid-19 Immunization (2 - season) 2024 12/03/2020 Influenza Immunization (#1) 2025 04/23/2013, 1 07/24/2010 Hepatitis B Immunization Completed 003, 2002, 2002 HIB Immunization Completed 07/06/2003, , 2002, Additional history exists Pneumococcal: Ped (0 to 5 Yrs) and At-Risk Member (6 to 64 Yrs) Completed 07/06/2003, 2002, 2002, Additional history exists Polio Immunization Completed 04/02/2006, 0 2002, 2002, Additional history exists Varicella Immunization Aged Out 05/11/2013, 2002 No longer eligible based on patient's age to complete this topic HPV Immunization Completed 08/30/2016, 09/2015, 01/26/2016 Hepatitis A Immunization Completed 08/26/2018, 03/2018 Meningococcal Immunization Completed 08/26/2018, Insurance OPT OUT NO COPAY NB
--- NOTE | 2025-03-11 22:14 | ECG_ITS ---
APPROVED REPORT Exam: Resting ECG HR:106 bpm ECG Measurements Heart Rate 106 AXES AR 138 P 43 QRSd 85 QRS 71 QT 315 T -7 QTc 377 Conclusion SINUS TACHYCARDIA NONSPECIFIC ST & T-WAVE ABNORMALITY ABNORMAL ECG UNCONFIRMED REPORT Sinus tachycardia, no ST elevation or depression. QTC normal at 377 Electronically signed by : DANA KERNS, 03/13/2025 18:05:33
--- NOTE | 2025-03-11 22:25 | XR_ITS ---
PROCEDURE INFORMATION: Exam: XR Chest Exam date and time: 03/11/2025 10:35 PM Age: 24 years old Clinical indication: Pain; Chest pressure; Additional info: Chest pain TECHNIQUE: Imaging protocol: Radiologic exam of the chest. Views: 1 view. COMPARISON: No relevant prior studies available. FINDINGS: Lungs: Unremarkable. No consolidation. Pleural spaces: Unremarkable. No pleural effusion. No pneumothorax. Heart/Mediastinum: Unremarkable. No cardiomegaly. Bones/joints: Unremarkable. IMPRESSION: No acute findings.
[2025-03-11 22:39] LABS: Hematocrit 50.1 % (42.0-52.0); Hemoglobin 17.5 g/dL (14.1-18.0); Immature Granulocytes % 0.9 %; Mean Corpuscular HGB Conc 34.9 g/dL (31.8-35.4); Mean Corpuscular Hemoglobin 28.8 pg (27.0-31.2); Mean Corpuscular Volume 82.4 fl (80-94); Nucleated Red Blood Cells % 0 %; Platelet Count 282 K/mm3 (142-424); Red Blood Count 6.08 M/mm3 (4.60-6.20); Red Cell Distribution Width-SD 37.7 fL; White Blood Count 10.3 K/mm3 (4.8-10.8)
[2025-03-11 22:41] LABS: Albumin Level 4.7 g/dl (3.5-5.0); Chloride 103 mmol/L (98-107); Potassium 4.2 mmoL/L (3.5-5.1); Sodium 137 mmol/L (136-145)
[2025-03-11 22:43] LABS: Alanine Aminotransferase 122 U/L (12-78); Anion Gap 11.2 mEq/L (5-15); Aspartate Amino Transferase 75 U/L (17-59); Blood Urea Nitrogen 7 mg/dl (9-20); Carbon Dioxide 27 mmol/L (22.0-30.0); Creatinine Clearance Estimated 176 mL/min (50-200); Creatinine,Serum 0.70 mg/dl (0.66-1.25); Estimated Glomerular Filt Rate 141 ml/min (>60); GFR (African American) 171 ML/MIN (>60)
[2025-03-11 22:44] LABS: Albumin/Globulin Ratio 1.3 (1.1-1.8); Alkaline Phosphatase 110 U/L (38-126); Bilirubin,Total 1.3 mg/dl (0.2-1.3); Calcium 9.4 mg/dl (8.4-10.2); Globulin 3.5 g/dL (1.3-3.2); Glucose 111 mg/dl (74-100); Total Protein,Serum 8.2 g/dl (6.3-8.2)
[2025-03-11 22:49] LABS: D-Dimer 0.40 ug/mL (0.0-0.5)
--- NOTE | 2025-03-11 22:58 | ED_ITS ---
Discharge Plan Disposition Patient Disposition: Home, Self-Care Condition: Good Referrals Follow up/Referrals: Julita Shah APRN [Primary Care Provider, Medical] - See instructions Activity Restrictions/Add. Instructions Additional Instructions/Restrictions: Follow-up with your primary care physician. If you develop any new or worsening symptoms, or if you become concerned for your health for any reason, return to the emergency department for evaluation Clinical Impressions Clinical Impression: Anxiety attack Print Language Print Language: Malay Discharge ED Provider: Enrike Carpio General Adult HPI General Chief complaint: Anxiety Stated complaint: High B/P 192/110,nose bleed x3 today Time Seen by Provider: 03/11/25 22:02 Mode of Arrival: Ambulatory Source of Information: Patient Description of Symptoms (Recalled from ER Triage Doc. by RN): Patient blood pressure of 192/110 at home. Has headache. Has severe anxiety/ocd. History of Present Illness HPI narrative: Arik Thompson is a 24y male with a history of anxiety, started on Lexapro yesterday, recurrent nosebleeds who presents to the emergency department for complaints of elevated blood pressure and chest pain. Patient states that yesterday, he slept with a fan very close to his face and dry down his nasal mucosa and had a nosebleed. He states that he had recurrence of his nosebleed earlier today and felt it trickle down the back of his throat and come up into his mouth, which made him anxious. He Checked his blood pressure at that time and it was elevated in the 170/110 range. He called 911 and his blood pressure, which improved some, however, later in tonight, they rechecked it and it was continually elevated in the 170-180 systolic range. His nosebleed has mostly resolved. He reports some mild chest pain, which he states is likely from anxiety, intermittently throughout the day. He denies any shortness of breath. He reports no vision changes. He reports sometimes having a headache that is not worse currently compared to baseline. Related Data Allergies Allergy/AdvReac Type Severity Reaction Status Date / Time promethazine (From Phenergan) AdvReac Unknown Nausea Verified 12/18/23 04:28 [facility] Disclaimer: The information contained in this section may have been updated after the patient was seen, as this information can be updated by other users. Medical History (Updated 03/11/25 @ 23:55 by Enrike Carpio MD) Anxiety Surgical History (Updated 12/18/23 @ 04:29 by Jennie Colon RN) History of tonsillectomy Social History (Updated 12/18/23 @ 05:00 by Benito Gorman MD) Smoking Status: Never smoker alcohol intake: never current occupational status: employed Travel in the last 8 weeks?: None Have you lived/traveled outside [place] in past 30 days?: No Contact w/someone who lives/traveled outside [place] past 30 days?: No Exposure to someone with infectious disease in past 14 days?: No Do you have a fever (greater than 100.4 F or 38 C)?: No Have you tested positive for COVID-19?: No Exposed to someone with COVID-19 in past 14 days?: No Do you have a sore throat?: No Do you have a cough?: No Do you have any weakness?: No Do you have any diarrhea?: No Are you experiencing any unusual bleeding?: No Do you have any muscle aches/pain?: No Do you have any abdominal pain?: No Are you experiencing loss of taste or smell?: No ROS Obtained: Yes Systems reviewed as appropriate & no additional complaints except as documented Physical Exam General General appearance: alert, in no apparent distress and anxious Head Head exam: atraumatic Eye Eye exam: Present normal appearance ENT ENT exam: Present normal external ear exam Neck Neck exam: Present full ROM Chest Chest inspection: Present symmetric chest wall rise Respiratory Respiratory exam: Present normal lung sounds bilaterally; Absent respiratory distress, wheezes or stridor Cardiovascular Cardiovascular exam: Present regular rate and normal rhythm Abdominal Exam Abdominal exam: Present soft; Absent tenderness or guarding exam: Present deferred Extremities Exam Extremities exam: Present normal inspection Back Exam Back exam: Present normal inspection Neurological Exam Neurological exam: Present alert and oriented X3 Psychiatric Psychiatric exam: Present normal affect Skin Skin exam: Present warm and dry Medical Decision Making Medical Records Screening: Per USPSTF and CDC recommendations, given the prevalence of disease in our region, it is our hospital?s policy to screen for HIV and viral Hepatitis for all patients aged 18 and over and those with ongoing risk factors. Jayant Inquiry Pt receiving controlled substance: No Vital Signs: 03/11/25 21:51 03/11/25 23:56 Temperature 97.9 F 98.4 F Temperature Source Temporal Artery Scan Oral Pulse Rate 103 H Pulse Rate [Right Radial] 118 H Respiratory Rate 16 16 Blood Pressure 130/86 Blood Pressure [Right Arm] 169/105 H Blood Pressure Mean [Right Arm] 126 Blood Pressure Source Automatic Cuff Blood Pressure Source [Right Arm] Automatic Cuff Blood Pressure Position Sitting Blood Pressure Position [Right Arm] Sitting 02 Sat by Pulse Oximetry 98 Oxygen Delivery Method Room Air Room Air Lab Data Lab Results 03/11/25 22:05: WBC 10.3, RBC 6.08, Hgb 17.5, Hct 50.1, MCV 82.4, MCH 28.8, MCHC 34.9, RDW 12.7, Plt Count 282, MPV 9.7, Neut % (Auto) 67.9, Lymph % (Auto) 22.2, Clarke % (Auto) 7.3, Eos % (Auto) 1.1, Baso % (Auto) 0.6, Neut # (Auto) 7.0, Lymph # (Auto) 2.3, Clarke # (Auto) 0.8, Eos # (Auto) 0.1, Baso # (Auto) 0.1, D-Dimer 0.40, Sodium 137, Potassium 4.2, Chloride 103, Carbon Dioxide 27, Anion Gap 11.2, BUN 7 L, Creatinine 0.70, Estimated Creat Clear 176, Estimated GFR 141, Est GFR ( Amer) 171, Glucose 111 H, Calcium 9.4, Total Bilirubin 1.3, AST 75 H, ALT 122 H, Alkaline Phosphatase 110, Troponin I < 0.01, Total Protein 8.2, Albumin 4.7, Globulin 3.5 H, Albumin/Globulin Ratio 1.3, TSH 1.99, Free T4 1.38 03/11/25 22:05 03/11/25 22:05 Orders (Tests/Meds): ED MEDICATIONS Discontinued Medications Generic Name Dose Route Start Last Admin Trade Name Freq PRN Reason Stop Dose Admin Lorazepam 1 mg 03/11/25 22:25 03/11/25 22:30 Lorazepam 1mg Tablet PO 03/11/25 22:26 1 mg ONCE ONE Administration ORDERS Category Date Time Status CXR --portable [XR chest portable] Stat Exams 03/11/25 22:25 Completed CBC w/Auto Diff [Complete Blood Count Auto Diff] Stat Lab 03/11/25 22:05 Completed CMP [Comprehensive Metabolic Panel] Stat Lab 03/11/25 22:05 Completed D-Dimer Stat Lab 03/11/25 22:05 Completed Free T4 (Free Thyroxine) Stat Lab 03/11/25 22:05 Completed TSH [Thyroid Stimulating Hormone] Stat Lab 03/11/25 22:05 Completed Troponin I Stat Lab 03/11/25 22:05 Completed ECG Data Tracing #1: I reviewed this ECG and interpreted as documented below: Sinus tachycardia. No ST elevation or depression. T wave inversions in lead III. Medical Decision Narrative: Arik Thompson is a 24y male with a history of anxiety, started on Lexapro yesterday, recurrent nosebleeds who presents to the emergency department for complaints of elevated blood pressure and chest pain. Patient states that yesterday, he slept with a fan very close to his face and dry down his nasal mucosa and had a nosebleed. He states that he had recurrence of his nosebleed earlier today and felt it trickle down the back of his throat and come up into his mouth, which made him anxious. He Checked his blood pressure at that time and it was elevated in the 170/110 range. He called 911 and his blood pressure, which improved some, however, later in tonight, they rechecked it and it was continually elevated in the 170-180 systolic range. His nosebleed has mostly resolved. He reports some mild chest pain, which he states is likely from anxiety, intermittently throughout the day. He denies any shortness of breath. He reports no vision changes. He reports sometimes having a headache that is not worse currently compared to baseline. On arrival, patient is hypertensive, tachycardic, breathing comfortably on room air, afebrile, maintaining appropriate oxygen saturation. Physical exam, as stated above, revealed an overall well appearing male who is anxious but in no distress. Cardiopulmonary Rick without murmurs or rubs. No wheezing. He is tachycardic. GCS 15 with no focal neurological deficit. Differential diagnosis includes, but is not limited to: Hypertensive emergency, ACS, pericarditis, pulmonary embolism, panic attack, among others. The most morbid conditions were considered and workup was based on these. Workup in the emergency department included: Chest x-ray, EKG, troponin, CBC with differential, CMP, D-dimer, TSH/free T4. Patient was administered 1 mg of oral Ativan. EKG showed sinus tachycardia with no ST elevation or depression. Isolated T wave inversions in lead III that are nonspecific. Chest x-ray interpreted by me personally. No focal consolidation, no pneumothorax, no widened mediastinum, no enlargement of the cardiac silhouette. Unremarkable chest x-ray. See radiology report for details. No leukocytosis, no anemia, platelets within normal limits. D-dimer negative at 0.4. Mildly elevated AST of 75, ALT mildly elevated 122, bilirubin normal at 1.3 and alk phos normal at 110 but grossly non-actionable. No previous data to compare these values to. Troponin <0.01 and thyroid studies unremarkable. On reassessment, patient's blood pressure had returned to patient's baseline. He feels well at this time. I encouraged him to follow up with his primary care physician. return preacutions were given. All questions were answered. He demonstrated understanding and was in agreement with this plan. he was then discharged from the ED instable condition. Critical Care Critical Care Time Critical Care Time: No
[2025-03-11 23:11] LABS: Troponin I < 0.01 ng/ml (0.00-0.034)
[2025-03-11 23:43] LABS: Free T4 (Free Thyroxine) 1.38 ng/dl (0.78-2.19)
[2025-03-11 23:56] VITALS: BP 130/86; PULSE 103; RESP 16; TEMP 36.9; O2SAT 98
[2025-03-11 23:57] LABS: Thyroid Stimulating Hormone 1.99 uIU/mL (0.465-4.68)
== END 2025-03-12 00:02 | disposition home or self-care (01) ==
PROVIDERS: Emergency Provider Student in an Organized Health Care Education/Training Program; PCP Nurse Practitioner Family
DX: F41.0 Panic disorder [episodic paroxysmal anxiety] (principal)
CPT/HCPCS: 71045; 80053; 84439; 84443; 84484; 85025; 85378; 93005; 99283; 99284